=== PATIENT | male | born 1990 | race Caucasian/White ===

== ENCOUNTER 2017-01-24 22:14 | Emergency (ER) | payer BC, OTHER ==
[~2017-01-24] VITALS: Ht 182.9 cm; Wt 68.0 kg
[2017-01-24] MEDS: fentaNYL PF VIAL 100 MCG/2 ML VIAL IV PRN ×2 (23:00→23:46)
[2017-01-24 23:03] LABS: BASO # 0.1 x10^3/uL (0.0-0.2); BASO % 1 % (0-3); EOS % 6 % (0-3); HEMATOCRIT 40.8 % (39.0-53.0); HEMOGLOBIN 13.7 g/dL (13.0-17.5); LYMPH # 2.7 x10^3/uL (1.0-4.8); LYMPH % 39 % (24-48); MEAN CORPUSCULAR HEMOGLOBIN 31 pg (25-35); MEAN CORPUSCULAR HGB CONC 34 g/dL (31-37); MEAN CORPUSCULAR VOLUME 93 fL (79-100); MONO % 6 % (0-9); NEUT % 48 % (31-73); PLATELET COUNT 228 x10^3/uL (140-400); RED BLOOD COUNT 4.39 x10^6/uL (4.30-5.70); RED CELL DISTRIBUTION WIDTH 12.9 % (11.5-14.5); WHITE BLOOD COUNT 6.8 x10^3/uL (4.0-11.0)
[2017-01-24 23:10] LABS: CALCIUM 8.7 mg/dL (8.5-10.1); GFR 91.8; POTASSIUM 3.7 mmol/L (3.5-5.1)
[2017-01-24 23:16] LABS: ALBUMIN 4.1 g/dL (3.4-5.0); ALBUMIN/GLOBULIN RATIO 1.3 (1.0-1.7); TOTAL BILIRUBIN 0.2 mg/dL (0.2-1.0); TOTAL PROTEIN 7.3 g/dL (6.4-8.2)
[2017-01-24 23:19] LABS: INR 1.1 (0.8-1.1); PROTHROMBIN TIME PATIENT 13.8 SEC (11.7-14.0)
[2017-01-24] MEDS ORDERED: IOHEXOL 300 MG/ML 75 ML VIAL ONE (23:21)
[2017-01-24] MEDS ORDERED: IOHEXOL 300 MG/ML 75 ML VIAL IV ONE (23:30)
[2017-01-24] MEDS ORDERED: CONTRAST GIVEN MC PRN (23:30)
--- NOTE | 2017-01-25 00:19 | RAD ---
CT HEAD AND CERVICAL SPINE WO dated 01/24/2017 10:39 PM History: Trauma, fall onto concrete, severe neck pain Technique: Noncontrast CT imaging was performed of the head and cervical spine. Multiplanar reconstruction images are submitted. Exposure: One or more of the following individualized dose reduction techniques were utilized for this examination: 1. Automated exposure control 2. Adjustment of the mA and/or kV according to patient size 3. Use of iterative reconstruction technique. Head CT Comparison: None Findings: No acute extra-axial or parenchymal hemorrhage is identified. There is no significant intra-axial mass effect, midline shift, or extra-axial fluid collection. The singh-white differentiation of the major vascular territories is preserved. The ventricles, sulci, and cisterns are within normal limits in size and configuration. The mastoid air cells and the visualized paranasal sinuses are aerated. There is no significant focal calvarial abnormality. Impression: 1. No acute intracranial abnormality is identified. Cervical spine CT Comparison: None Findings: No acute cervical spine fracture is identified. Vertebral body stature and AP alignment are within normal limits. Atlanto-axial distance is within normal limits. There is appropriate alignment of lateral masses of C1 relative to C2. Occipital condylar-C1 relationship is maintained. Impression: 1. No acute cervical spine fracture is identified. Electronically signed by: Fredo Edmonds MD (01/25/2017 12:16 AM) [facility]
--- NOTE | 2017-01-25 00:25 | RAD ---
CT THORACIC SPINE RECONSTRUCT, CT LUMBAR SPINE RECONSTRUCTION, CT CHEST ABD PELVIS W/CONTRAST dated 01/24/2017 12:00 AM Indication: trauma, back pain, no priors Comparison: None available Technique: Postcontrast CT imaging was performed of the[abdomen and pelvis, also reconstruction images of the thoracic and lumbar spine submitted. Multiplanar reconstruction images submitted. One or more of the following individualized dose reduction techniques were utilized for this examination: 1. Automated exposure control 2. Adjustment of the mA and/or kV according to patient size 3. Use of iterative reconstruction technique. CHEST: Findings: Some density in the anterior mediastinum is more likely due to residual thymus, not significantly hyperdense. Thoracic aortic caliber is within normal limits without intraluminal flap. There is no pneumothorax, pleural or pericardial effusion, infiltrate. Major airways are patent. IMPRESSION: 1. No significant acute abnormality is identified of the chest. Abdomen and pelvis: There is some artifact created by patient's arms near sides. Both kidneys enhance, no hydronephrosis. No focal abnormality is identified of the liver, spleen, pancreas. Accurate evaluation of bowel is limited without oral contrast. Is no significant bowel dilatation, free air, free fluid. There is no adrenal nodularity. Urinary bladder morphology is within normal limits. Abdominal aortic caliber is within normal limits. Normal appendix is seen. There is retained stool greatest of the right colon. IMPRESSION: 1. No acute abnormality is identified of the abdomen or pelvis. CT thoracic spine: Thoracic vertebral body stature and AP alignment are maintained. No acute thoracic spine fracture is identified. IMPRESSION: 1. No acute thoracic spine fracture is identified. CT lumbar spine: Lumbar vertebral body stature and AP alignment are maintained. No acute lumbar spine fracture is identified. IMPRESSION: 1. No acute lumbar spine fracture is identified. Electronically signed by: Fredo Edmonds MD (01/25/2017 12:22 AM) [facility]
[2017-01-25] MEDS: fentaNYL PF VIAL 100 MCG/2 ML VIAL IV PRN (00:44)
[2017-01-25] MEDS: HYDROmorphone 2 MG/ML VIAL IV/SQ PRN ×3 (01:29→04:21)
[2017-01-25 03:15] LABS: BARBITURATES NEG (NEG); BENZODIAZEPINES NEG (NEG); CANNABINOIDS NEG (NEG); COCAINE NEG (NEG); METHADONE NEG (NEG); OPIATES POS (NEG); PHENCYCLIDINE NEG (NEG)
[2017-01-25 03:19] LABS: BACTERIA,URINE 0 /HPF (0-FEW); BILIRUBIN,URINE NEGATIVE (NEG); GLUCOSE,URINE NEGATIVE (NEG); NITRITE,URINE NEGATIVE (NEG); PROTEIN,URINE NEGATIVE (NEG-TRACE); RBC,URINE 0 /HPF (0-2); WBC,URINE 0 /HPF (0-4)
[2017-01-25 04:15] VITALS: BP 135/87
--- NOTE | 2017-01-25 04:35 | EKG ---
[facility] [address] [place] [address] Test Date: 2017-01-24 Test Time: 22:42:56 Pat Name: ANSELMO GARSIA Department: Room: Gender: M [employer] Painting Machine Operator: : 1990 Requested By: VALERIE PHAM Order Number: [id number] Reading MD: Hilary Walter Measurements Intervals Cherry Rate: 59 P: 56 CA: 154 QRS: 65 QRSD: 90 T: 51 QT: 382 QTc: 378 Interpretive Statements SINUS RHYTHM LEFT ATRIAL ABNORMALITY INCOMPLETE RIGHT BUNDLE BRANCH BLOCK Electronically Signed On 01-28-2017 11:12:44 CDT by Hilary Walter
--- NOTE | 2017-01-25 06:18 | ED.ADGEN ---
Past Medical History Past Medical History: Fibromyalgia, Other Additional Past Medical Histor: CHRONIC BACK PAIN Past Surgical History: No Surgical History Alcohol Use: None Drug Use: None Adult General Chief Complaint Chief Complaint: NECK INJURY HPI HPI Patient is a 26 year old man, history of fibromyalgia, and disc herniation L4- L5, who presents to the emergency department via private vehicle with a complaint of neck pain, back pain, and numbness and tingling in the left upper and lower extremity, patient also states that he feels as though his left upper and lower extremity are weak. Patient states that he was standing on his deck at his home at 0600, when he fell, he states he landed on his neck and head, and then struck the concrete with his lower back, a total distance about 3 to half feet. This occurred approximately 13 hours prior to arrival in the emergency department. He denies any loss of consciousness. He began experiencing pain that begins in the upper portion of his neck immediately, he states he is experiencing pain radiates specifically in the left shoulder, although he denies striking the shoulder, and states that numbness and tingling incasing the entire arm and leg began about 30 minutes later, states that he was initially able to get up and ambulate after it occurred, and did go to work, but is having increasing difficulty with motion and worsening numbness and tingling since this morning, with motion although he is unable to specify if it is due to pain or due to bubba muscle weakness. He is complaining of severe pain in his lower back as well. He denies any headache, any vision changes, any nausea or vomiting, any chest pain, shortness of breath, abdominal pain. He does take hydrocodone daily for pain along with Flexeril. He states he was drinking a few beers before this occurred, denies any other ingestions or exposures. No history of head injury or neck injury, history of herniation of the lumbar spine as stated which was diagnosed several years ago. No history of surgery. C-collar placed upon arousing emergency department. Review of Systems Review of Systems Constitutional: Denies fever or chills. [] Eyes: Denies change in visual acuity. [] HENT: Denies nasal congestion or sore throat. [] Respiratory: Denies cough or shortness of breath. [] Cardiovascular: Denies chest pain or edema. [] GI: Denies abdominal pain, nausea, vomiting, bloody stools or diarrhea. [] : Denies dysuria. [] Musculoskeletal: Back and neck pain, associated with numbness and tingling, difficulty with ambulation secondary to pain. Integument: Denies rash. [] Neurologic: Denies headache, complaining of sensory changes in the left upper and lower extremity, significant pain with weakness. Endocrine: Denies polyuria or polydipsia. [] Lymphatic: Denies swollen glands. [] Psychiatric: Denies depression or anxiety. [] Current Medications Current Medications Current Medications Medications (Trade) Dose Ordered Sig/Radha Start Time Stop Time Status Last Admin Dose Admin Fentanyl Citrate (Fentanyl 2ml Vial) 25 mcg PRN Q15MIN PRN 01/24/17 22:45 01/25/17 05:54 DC 01/25/17 00:44 25 MCG Hydromorphone HCl (Dilaudid) 0.5 mg PRN Q15MIN PRN 01/25/17 01:15 01/25/17 05:54 DC 01/25/17 04:21 0.5 MG Info (Do NOT chart on this entry -- for MONITORING) 1 each PRN DAILY PRN 01/24/17 23:30 01/25/17 05:54 DC Iohexol (Omnipaque 300 Mg/ml) 75 ml STK-MED ONCE 01/24/17 23:21 01/24/17 23:22 DC Allergies Allergies Allergies Coded Allergies Type Severity Reaction Last Updated Verified No Known Drug Allergies 06/23/14 No Physical Exam Physical Exam Constitutional: Well developed, well nourished, patient appears uncomfortable, c -collar placed, non-toxic appearance. [] HENT: Normocephalic, atraumatic, bilateral external ears normal, oropharynx moist, no oral exudates, nose normal. [] Eyes: PERRLA, EOMI, conjunctiva normal, no discharge. [] Neck: Normal range of motion, no tenderness, supple, no stridor. [] Cardiovascular:Heart rate regular rhythm, no murmur , S1, S2, rubs or gallops.[] Lungs & Thorax: Bilateral breath sounds clear to auscultation , no wheezing, rhonchi, rales. No chest or crepitus or tenderness.[] Abdomen: Bowel sounds normal, soft, no tenderness, no masses, no pulsatile masses. [] Skin: Warm, dry, no erythema, no rash. [] Back: Patient with midline tenderness to palpation, in the cervical, thoracic, and lower lumbar spine, and a 7 or deformities identified, patient with minimal paraspinal tenderness also.. [] Patient complaining of pain in the left shoulder, without any palpable bony point tenderness or crepitus. No external signs of trauma. Range of motion limited as stated., no cyanosis, no clubbing, ROM intact, no edema. Negative Homans sign.[] Neurologic: Alert and oriented X 3, patient with 4-5 strength in the left upper and lower extremities, states decreased sensation throughout the left upper extremity circumferentially, and greater in the left lower extremity in the lateral aspect of the medial aspect. Psychologic: Affect normal, judgement normal, mood normal. [] Rectal examination: Good tone, sensation intact. Current Patient Data Vital Signs Vital Signs Date Time Temp Pulse Resp B/P (MAP) Pulse Ox O2 Delivery O2 Flow Rate FiO2 01/25/17 04:21 16 100 Room Air 01/25/17 04:15 86 135/87 (103) 01/25/17 01:25 98.2 98.2 Lab Values Laboratory Tests Test 01/24/17 22:49 01/24/17 23:17 01/25/17 03:00 White Blood Count 6.8 x10^3/uL (4.0-11.0) Red Blood Count 4.39 x10^6/uL (4.30-5.70) Hemoglobin 13.7 g/dL (13.0-17.5) Hematocrit 40.8 % (39.0-53.0) Mean Corpuscular Volume 93 fL (79-100) Mean Corpuscular Hemoglobin 31 pg (25-35) Mean Corpuscular Hemoglobin Concent 34 g/dL (31-37) Red Cell Distribution Width 12.9 % (11.5-14.5) Platelet Count 228 x10^3/uL (140-400) Neutrophils (%) (Auto) 48 % (31-73) Lymphocytes (%) (Auto) 39 % (24-48) Monocytes (%) (Auto) 6 % (0-9) Eosinophils (%) (Auto) 6 % (0-3) H Basophils (%) (Auto) 1 % (0-3) Neutrophils # (Auto) 3.2 x10^3uL (1.8-7.7) Lymphocytes # (Auto) 2.7 x10^3/uL (1.0-4.8) Monocytes # (Auto) 0.4 x10^3/uL (0.0-1.1) Eosinophils # (Auto) 0.4 x10^3/uL (0.0-0.7) Basophils # (Auto) 0.1 x10^3/uL (0.0-0.2) Prothrombin Time 13.8 SEC (11.7-14.0) Prothrombin Time INR 1.1 (0.8-1.1) PTT 32 SEC (24-38) Sodium Level 142 mmol/L (136-145) Potassium Level 3.7 mmol/L (3.5-5.1) Chloride Level 103 mmol/L (98-107) Carbon Dioxide Level 32 mmol/L (21-32) Anion Gap 7 (6-14) Blood Urea Nitrogen 16 mg/dL (8-26) Creatinine 1.0 mg/dL (0.7-1.3) Estimated GFR (Cockcroft-Gault) 91.8 BUN/Creatinine Ratio 16 (6-20) Glucose Level 97 mg/dL (70-99) Calcium Level 8.7 mg/dL (8.5-10.1) Total Bilirubin 0.2 mg/dL (0.2-1.0) Aspartate Amino Transferase (AST) 18 U/L (15-37) Alanine Aminotransferase (ALT) 25 U/L (16-63) Alkaline Phosphatase 67 U/L (46-116) Total Protein 7.3 g/dL (6.4-8.2) Albumin 4.1 g/dL (3.4-5.0) Albumin/Globulin Ratio 1.3 (1.0-1.7) Ethyl Alcohol Level < 10 mg/dL (0-10) Lactic Acid Level 1.1 mmol/L (0.4-2.0) Urine Collection Type Unknown Urine Color Yellow Urine Clarity Cloudy Urine pH 8.0 Urine Specific [place] >=1.030 Urine Protein Negative mg/dL (NEG-TRACE) Urine Glucose (UA) Negative mg/dL (NEG) Urine Ketones (Stick) Negative mg/dL (NEG) Urine Blood Negative (NEG) Urine Nitrite Negative (NEG) Urine Bilirubin Negative (NEG) Urine Urobilinogen Dipstick 1.0 mg/dL (0.2 mg/dL) Urine Leukocyte Esterase Negative (NEG) Urine RBC 0 /HPF (0-2) Urine WBC 0 /HPF (0-4) Urine Squamous Epithelial Cells None /LPF Urine Amorphous Sediment Present /HPF Urine Bacteria 0 /HPF (0-FEW) Urine Mucus Slight /LPF Urine Opiates Screen Pos (NEG) Urine Methadone Screen Neg (NEG) Urine Barbiturates Neg (NEG) Urine Phencyclidine Screen Neg (NEG) Urine Amphetamine/Methamphetamine Neg (NEG) Urine Benzodiazepines Screen Neg (NEG) Urine Cocaine Screen Neg (NEG) Urine Cannabinoids Screen Neg (NEG) Urine Ethyl Alcohol Neg (NEG) Laboratory Tests 01/24/17 22:49 Laboratory Tests 01/24/17 22:49 EKG EKG EC: Sinus rhythm, heart rate 59 beats/minute, incomplete right bundle- branch block noted, contour normality is noted in the anterior lateral leads, abnormal ECG, does not meet STEMI criteria. As interpreted by me.[] Radiology/Procedures Radiology/Procedures [][facility] [address] [place] [address] IMAGING REPORT Signed PATIENT: ANSELMO GARSIA ACCOUNT: [id number] : 1990 LOCATION: ER AGE: 26 SEX: M EXAM STATUS: REG ER ORD. PHYSICIAN: VALERIE PHAM DO REASON: Fall/neck pain/decreased sensation PROCEDURE: CT HEAD AND CERVICAL SPINE WO CT HEAD AND CERVICAL SPINE WO dated 01/24/2017 10:39 PM History: Trauma, fall onto concrete, severe neck pain Technique: Noncontrast CT imaging was performed of the head and cervical spine. Multiplanar reconstruction images are submitted. Exposure: One or more of the following individualized dose reduction techniques were utilized for this examination: 1. Automated exposure control 2. Adjustment of the mA and/or kV according to patient size 3. Use of iterative reconstruction technique. Head CT Comparison: None Findings: No acute extra-axial or parenchymal hemorrhage is identified. There is no significant intra-axial mass effect, midline shift, or extra-axial fluid collection. The singh-white differentiation of the major vascular territories is preserved. The ventricles, sulci, and cisterns are within normal limits in size and configuration. The mastoid air cells and the visualized paranasal sinuses are aerated. There is no significant focal calvarial abnormality. Impression: 1. No acute intracranial abnormality is identified. Cervical spine CT Comparison: None Findings: No acute cervical spine fracture is identified. Vertebral body stature and AP alignment are within normal limits. Atlanto-axial distance is within normal limits. There is appropriate alignment of lateral masses of C1 relative to C2. Occipital condylar-C1 relationship is maintained. Impression: 1. No acute cervical spine fracture is identified. Electronically signed by: Basilio Jaeger MD (01/25/2017 12:16 AM) [facility] DICTATED and SIGNED BY: BASILIO JAEGER MD DATE: 01/25/17 0013 CC: VALERIE PHAM DO; NO PCP ~ Impressions: [facility] [address] [place] [address] IMAGING REPORT Signed PATIENT: ANSELMO GARSIA ACCOUNT: [id number] : 1990 LOCATION: ER AGE: 26 SEX: M EXAM STATUS: REG ER ORD. PHYSICIAN: VALERIE PHAM DO REASON: TRAUMA PROCEDURE: CT CHEST ABD PELVIS W/CONTRAST CT THORACIC SPINE RECONSTRUCT, CT LUMBAR SPINE RECONSTRUCTION, CT CHEST ABD PELVIS W/CONTRAST dated 01/24/2017 12:00 AM Indication: trauma, back pain, no priors Comparison: None available Technique: Postcontrast CT imaging was performed of the[abdomen and pelvis, also reconstruction images of the thoracic and lumbar spine submitted. Multiplanar reconstruction images submitted. One or more of the following individualized dose reduction techniques were utilized for this examination: 1. Automated exposure control 2. Adjustment of the mA and/or kV according to patient size 3. Use of iterative reconstruction technique. CHEST: Findings: Some density in the anterior mediastinum is more likely due to residual thymus, not significantly hyperdense. Thoracic aortic caliber is within normal limits without intraluminal flap. There is no pneumothorax, pleural or pericardial effusion, infiltrate. Major airways are patent. IMPRESSION: 1. No significant acute abnormality is identified of the chest. Abdomen and pelvis: There is some artifact created by patient's arms near sides. Both kidneys enhance, no hydronephrosis. No focal abnormality is identified of the liver, spleen, pancreas. Accurate evaluation of bowel is limited without oral contrast. Is no significant bowel dilatation, free air, free fluid. There is no adrenal nodularity. Urinary bladder morphology is within normal limits. Abdominal aortic caliber is within normal limits. Normal appendix is seen. There is retained stool greatest of the right colon. IMPRESSION: 1. No acute abnormality is identified of the abdomen or pelvis. CT thoracic spine: Thoracic vertebral body stature and AP alignment are maintained. No acute thoracic spine fracture is identified. IMPRESSION: 1. No acute thoracic spine fracture is identified. CT lumbar spine: Lumbar vertebral body stature and AP alignment are maintained. No acute lumbar spine fracture is identified. IMPRESSION: 1. No acute lumbar spine fracture is identified. Electronically signed by: Basilio Jaeger MD (01/25/2017 12:22 AM) [facility] DICTATED and SIGNED BY: BASILIO JAEGER MD DATE: 01/25/17 0016 CC: VALERIE PHAM DO; NO PCP ~ Shoulder x-ray: Two-view: No fracture subluxation identified, no soft tissue or bony abnormalities. As interpreted by me. Course & Med Decision Making Course & Med Decision Making Pertinent Labs and Imaging studies reviewed. (See chart for details) Trauma alert called on patient arrival to the ED, c-collar placed. CT of head and neck without contrast obtained, along with CT imaging of the chest abdomen and pelvis, due to patient's complaints of pain in the left shoulder, chest, flank, lumbar and cervical spine. No bony or soft tissue abnormalities identified on imaging. However, after receiving multiple doses of analgesia in the ED, patient is still complaining of significant pain, with concern for weakness, and persistent and unchanged sensory disturbances. Continued concern for possible spinal cord injury, I did discuss findings as above with neurosurgery on-call, Dr. Arnold and his PA Elin, her mentation for emergent MRI of the cervical and lumbar spine. Patient was agreeable this plan, also for admission to the hospital for evaluation monitoring, however, at time of lay out technician arrival in the emergency department, we were informed that the magnet was not functioning, and MRI was unavailable at this time. I did speak with neurosurgery again, at this point we will arrange for transfer of the patient for MRI and continued evaluation. I did speak with the patient is agreeable this plan, neurologic examination remains unchanged, he does have significantly improved function in the left upper and lower extremity, after receiving multiple doses of analgesia patient is exhibiting 5 out of 5 strength at this time, normal reflexes, however sensory deficits remain unchanged. Vital signs remained stable on the monitor. I did speak with Dr. Lopez of trauma surgery at [facility], patient was accepted his service for transfer to the ICU, for MRI imaging additional evaluation. Transfer paperwork was completed. EMS transport was arranged, patient was transferred without issue. Dragon Disclaimer Dragon Disclaimer This electronic medical record was generated, in whole or in part, using a voice recognition dictation system. Departure Impression: Primary Impression: Sensory disturbance Additional Impressions: Neck pain Back pain Disposition: 05 TRANSFER OTHER Condition: IMPROVED Problem Qualifiers VALERIE PHAM DO Jan 25, 2017 06:18
--- NOTE | 2017-01-25 07:32 | RAD ---
Indication pain associated with a fall. Internally and externally rotated views of the left shoulder as well as a Y view were obtained. No bony abnormality is seen
== END 2017-01-25 04:17 | disposition short-term general hospital (02) ==
LOC: ER 22:14
DX: R20.9 Unspecified disturbances of skin sensation (principal); M54.2 Cervicalgia; M54.9 Dorsalgia, unspecified; M79.7 Fibromyalgia; G89.29 Other chronic pain; R26.2 Difficulty in walking, not elsewhere classified; Z79.899 Other long term (current) drug therapy; Z79.01 Long term (current) use of anticoagulants; W17.89XA Other fall from one level to another, initial encounter; Y93.89 Activity, other specified; Y92.89 Other specified places as the place of occurrence of the external cause; Y99.8 Other external cause status
CPT/HCPCS: 36415; 70450; 71260; 72125; 73030; 74177; 80053; 80307; 81001; 83605; 85025; 85610; 85730; 86850; 86900; 86901; 93005; 96374; 96375; 96376; 99285; G0480; J1170; J3010; Q9967; G0479